=== PATIENT | male | born 1945 | race Two or more races ===

== ENCOUNTER 2024-12-17 06:59 | Emergency (ER) | payer OTHER ==
[~2024-12-17] VITALS: Ht 185.4 cm; Wt 79.8 kg
[2024-12-17] MEDS ORDERED: CARDURA XL4 MG (07:15)
[2024-12-17] MEDS ORDERED: METHYLPREDNISOLONE SOD SUCC 40 MG VIAL IM ONE (09:00)
[2024-12-17] MEDS ORDERED: MONTELUKAST SODIUM 10 MG TABLET PO ONE (09:00)
[2024-12-17] MEDS ORDERED: METHYLPREDNISOLONE SOD SUCC 40 MG VIAL ONE (09:28)
== END 2024-12-17 10:38 | disposition home or self-care (01) ==
LOC: ER 07:02
DX: J02.9 Acute pharyngitis, unspecified (principal); I10 Essential (primary) hypertension; E78.00 Pure hypercholesterolemia, unspecified